=== PATIENT | male | born 1950 | race Hispanic/Latino ===

== ENCOUNTER 2022-06-03 05:47 | Emergency (ER) | payer MEDICARE ==
[~2022-06-03] VITALS: Ht 170.2 cm; Wt 88.5 kg
[~2022-06-03 05:47] MED LIST: ASPIRIN CHEW81 MG PO; BYSTOLIC5 MG PO; DOXAZOSIN MESYLA4 MG PO; EPLERENONE50 MG PO; EXFORGE 5-3201 EACH PO
== END 2022-06-03 08:49 | disposition home or self-care (01) ==
LOC: ER 05:53
DX: J30.2 Other seasonal allergic rhinitis (principal); I10 Essential (primary) hypertension; Z79.82 Long term (current) use of aspirin; Z79.899 Other long term (current) drug therapy
CPT/HCPCS: 99282